=== PATIENT | female | born 1980 ===

== ENCOUNTER 2017-05-25 23:52 | Emergency (ER) | payer SELFPAY ==
[2017-05-26 00:25] VITALS: BP 114/72; PULSE 85; RESP 16; TEMP 97.8; O2SAT 96
[2017-05-26 01:22] LABS: RBC URINE 1 /hpf (0-3); URINE BACTERIA RARE (<OCC); URINE BILIRUBIN NEGATIVE (NEGATIVE); URINE BLOOD 1+ (NEGATIVE); URINE COLOR Amber (YELLOW); URINE GLUCOSE (UA) NORMAL (Normal); URINE KETONE NEGATIVE (NEGATIVE); URINE LEUKOCYTE ESTERASE TRACE Leu/uL (Negative); URINE PROTEIN NEGATIVE (NEGATIVE); WBC URINE 3 /hpf (0-5)
--- NOTE | 2017-05-26 01:32 | C.PDOC ---
Time Seen by Provider: 05/26/17 00:23 Chief Complaint (Nursing): Female Genitourinary Past Medical History Vital Signs: Last Vital Signs Temp 97.8 F 05/26/17 00:24 Pulse 85 05/26/17 00:24 Resp 16 05/26/17 00:24 BP 114/72 05/26/17 00:24 Pulse Ox 96 05/26/17 00:24 - Medical History PMH: Anxiety Family History: States: Unknown Family Hx - Social History Hx Tobacco Use: No Hx Alcohol Use: No Hx Substance Use: No - Immunization History Hx Tetanus Toxoid Vaccination: Yes Hx Influenza Vaccination: No Hx Pneumococcal Vaccination: No ED Course And Treatment O2 Sat by Pulse Oximetry: 96 Disposition Counseled Patient/Family Regarding: Diagnosis, Need For Followup, Rx Given - Disposition Referrals: Juancho Aburto MD [Staff Provider] - Disposition: HOME/ ROUTINE Disposition Time: 01:29 Condition: STABLE Additional Instructions: Please follow up with PMD Increase Fluids Take meds as directed Return to ER if worse Prescriptions: Ibuprofen [Motrin] 600 mg PO Q6H #20 tab Nitrofurantoin Macrocrystals [Macrobid] 1 cap PO BID #14 cap Instructions: Urinary Tract Infection in Women (ED) Print Language: ALGERIAN - Clinical Impression Clinical Impression: Urinary tract infection
== END 2017-05-26 01:35 | disposition home or self-care (01) ==
LOC: C.ER 23:52
DX: N39.0 Urinary tract infection, site not specified (principal)

== ENCOUNTER 2017-06-01 16:24 | Emergency (ER) | payer OTHER ==
[2017-06-01 16:48] VITALS: RESP 18; TEMP 98.2
[2017-06-01 17:15] LABS: SQUAMOUS EPITHIAL 5 /hpf (0-5); URINE BACTERIA RARE (<OCC); URINE BILIRUBIN NEGATIVE (NEGATIVE); URINE CLARITY Clear (Clear); URINE COLOR Yellow (YELLOW); URINE GLUCOSE (UA) NORMAL (Normal); URINE NITRATE NEGATIVE (NEGATIVE); URINE PROTEIN NEGATIVE (NEGATIVE); URINE UROBILINOGEN NORMAL mg/dL (0.2-1.0)
--- NOTE | 2017-06-01 17:16 | C.PDOC ---
History Of Present Illness 37 y/o female presents to the ED with complaints of dysuria and left flank heat for the past few days. Pain is 5/10 each time urinates she urinates. Pt seen here last week for same, UA (+) leukocytes, culture negative, given nitrofurantoin. Pt reports no relief. Denies fever, chills, hematuria, vaginal bleeding or discharge, nausea, vomiting or any other complaints. Pt not sexually acitve. Time Seen by Provider: 06/01/17 16:50 Chief Complaint (Nursing): Female Genitourinary History Per: Patient History/Exam Limitations: no limitations Onset/Duration Of Symptoms: Days Current Symptoms Are (Timing): Still Present Severity: Moderate Pain Scale Rating Of: 5 Quality Of Discomfort: "Pain" Associated Symptoms: Urinary Symptoms (dysuria). denies: Fever, Chills, Nausea , Vomiting Recent travel outside of the [place]: No Abnormal Vaginal Bleeding: No Past Medical History Reviewed: Historical Data, Nursing Documentation, Vital Signs Vital Signs: Last Vital Signs Temp 98.2 F 06/01/17 16:48 Pulse 88 06/01/17 16:48 Resp 18 06/01/17 16:48 BP 114/73 06/01/17 16:48 Pulse Ox 99 06/01/17 17:17 - Medical History PMH: Anxiety Family History: States: Unknown Family Hx - Social History Hx Tobacco Use: No Hx Alcohol Use: No Hx Substance Use: No - Immunization History Hx Tetanus Toxoid Vaccination: Yes Hx Influenza Vaccination: No Hx Pneumococcal Vaccination: No Review Of Systems Except As Marked, All Systems Reviewed And Found Negative. Constitutional: Negative for: Fever, Chills Gastrointestinal: Negative for: Nausea, Vomiting Genitourinary: Positive for: Dysuria, Other (left flank "heat"). Negative for: Hematuria, Vaginal Discharge, Vaginal Bleeding Physical Exam - Physical Exam Appears: Non-toxic, No Acute Distress Skin: Warm, Dry, No Rash Head: Atraumatic, Normacephalic Chest: Symmetrical Cardiovascular: Rhythm Regular, No Murmur Respiratory: Normal Breath Sounds, No Rales, No Rhonchi, No Wheezing Gastrointestinal/Abdominal: Soft, Tenderness (diffuse discomfort to LLQ), No Guarding, No Rebound Back: No CVA Tenderness Neurological/Psych: Oriented x3, Normal Speech ED Course And Treatment O2 Sat by Pulse Oximetry: 99 (room air) Pulse Ox Interpretation: Normal Progress Note: urine culture negative. UA (+) for leukocytes. Discharged home with Pyridium, cipro. Disposition - Disposition Referrals: [facility] [Outside] Juancho Aburto MD [Staff Provider] - Disposition: HOME/ ROUTINE Disposition Time: 17:13 Condition: STABLE Additional Instructions: Siga en la clinica para wes un gynecologo. Terral la medicina juarez se indica. Prescriptions: Ciprofloxacin HCl [Cipro] 1 tab PO BID #14 tab Ibuprofen [Motrin] 600 mg PO TID #15 tab Phenazopyridine [Pyridium] 200 mg PO TID #12 tab Instructions: Dysuria (ED) Forms: Gen Discharge Inst Omani - Clinical Impression Clinical Impression: Dysuria - Scribe Statement The provider has reviewed the documentation as recorded by the Deisy Stack Provider Attestation: All medical record entries made by the Betsyibwicho were at my direction and personally dictated by me. I have reviewed the chart and agree that the record accurately reflects my personal performance of the history, physical exam, medical decision making, and the department course for this patient. I have also personally directed, reviewed, and agree with the discharge instructions and disposition.
[2017-06-01 17:17] LABS: URINE BLOOD 1+ (NEGATIVE); URINE LEUKOCYTE ESTERASE 1+ Leu/uL (Negative)
[2017-06-01 17:39] VITALS: BP 120/70; PULSE 75; O2SAT 98
== END 2017-06-01 17:39 | disposition home or self-care (01) ==
LOC: C.ER 16:24
DX: R30.0 Dysuria (principal)

== ENCOUNTER 2018-07-08 17:06 | Emergency (ER) | payer OTHER ==
[2018-07-08 17:35] VITALS: BMI 23.4
[2018-07-08 17:39] VITALS: RESP 20
--- NOTE | 2018-07-08 19:34 | C.PDOC ---
History Of Present Illness The patient presents to the ED for evaluation of depression which has been worsening over the past 4-5 days. Patient is crying in the ED. She denies suicidal/homicidal ideation and has no physical complaints at this time. Time Seen by Provider: 07/08/18 19:33 Chief Complaint (Nursing): Psychiatric Evaluation History Per: Patient History/Exam Limitations: language barrier (Uruguayan ) Onset/Duration Of Symptoms: Days (4-5) Current Symptoms Are (Timing): Worse Suicide/Self Injury Attempted (Context): None Modifying Factor(s): None Severity: None Pain Scale Rating Of: 0 Associated Symptoms: Depression. denies: Suicidal Thoughts, Suicidal Plan Involuntary Hold By: None Recent travel outside of the [place]: No Additional History Per: Patient Past Medical History Reviewed: Historical Data, Nursing Documentation, Vital Signs Vital Signs: Last Vital Signs Temp 98.1 F 07/08/18 17:35 Pulse 78 07/08/18 17:35 Resp 20 07/08/18 17:35 BP 103/71 07/08/18 17:35 Pulse Ox 99 07/08/18 19:58 - Medical History PMH: Anxiety, Depression Surgical History: No Surg Hx - [facility] Procedures NEBULIZER THERAPY (09/26/13) Family History: States: Unknown Family Hx - Social History Hx Tobacco Use: No Hx Alcohol Use: No Hx Substance Use: No - Immunization History Hx Tetanus Toxoid Vaccination: Yes Hx Influenza Vaccination: No Hx Pneumococcal Vaccination: No Review Of Systems Constitutional: Negative for: Fever, Chills Cardiovascular: Negative for: Chest Pain, Palpitations Respiratory: Negative for: Cough, Shortness of Breath Gastrointestinal: Negative for: Nausea, Vomiting, Abdominal Pain Skin: Negative for: Rash, Lesions, Jaundice, Bruising Neurological: Negative for: Weakness, Numbness Psych: Positive for: Depression. Negative for: Suicidal ideation Physical Exam - Physical Exam Appears: Non-toxic, No Acute Distress, Other (tearful) Skin: Warm, Dry Head: Normacephalic Eye(s): bilateral: Normal Inspection Oral Mucosa: Moist Chest: Symmetrical, No Deformity Cardiovascular: Rhythm Regular, No Murmur Respiratory: No Rales, No Rhonchi, No Wheezing Extremity: Normal ROM Neurological/Psych: Oriented x3 ED Course And Treatment - Laboratory Results Result Diagrams: 07/08/18 20:19 08/09/18 20:19 O2 Sat by Pulse Oximetry: 99 (on RA) Pulse Ox Interpretation: Normal Progress Note: Bloodwork and urinalysis ordered. Pt was cleared for discharge by dr Zhu Reevaluation Time: 22:09 Reassessment Condition: Improved Disposition Counseled Patient/Family Regarding: Studies Performed, Diagnosis, Need For Followup - Disposition Referrals: [facility] [Outside] Disposition: HOME/ ROUTINE Disposition Time: 19:34 Condition: FAIR Additional Instructions: Please return if symptoms recur Instructions: Depression, Adult (DC) Forms: [employer] (Mongolian) Print Language: OCCITAN - Clinical Impression Clinical Impression: Depression - Scribe Statement The provider has reviewed the documentation as recorded by the Scribe (Evie Patino) Provider Attestation: All medical record entries made by the Scribe were at my direction and personally dictated by me. I have reviewed the chart and agree that the record accurately reflects my personal performance of the history, physical exam, medical decision making, and the department course for this patient. I have also personally directed, reviewed, and agree with the discharge instructions and disposition.
[2018-07-08 20:28] LABS: BASO % 0.6 % (0.0-2.0); EOS % 0.3 % (0.0-4.0); HEMOGLOBIN 13.3 g/dL (11.0-16.0); LYMPH # 1.8 K/uL (1.0-4.3); LYMPH % 23.4 % (20.0-40.0); MEAN CELL VOLUME 93.2 fL (81.0-99.0); MEAN CORPUSCULAR HEMOGLOBIN 33.1 pg (27.0-31.0); MEAN CORPUSCULAR HGB CONC 35.5 g/dL (33.0-37.0); MONO # 0.5 K/uL (0.0-0.8); MONO % 6.3 % (0.0-10.0); NEUT # 5.4 K/uL (1.8-7.0); NEUT % 69.4 % (50.0-75.0); RBC 4.02 Mil/uL (3.80-5.20); RED CELL DISTRIBUTION WIDTH 12.7 % (11.5-14.5); WHITE BLOOD COUNT 7.8 K/uL (4.8-10.8)
[2018-07-08 20:37] LABS: HCG,QUALITATIVE URINE NEGATIVE (NEGATIVE)
[2018-07-08 20:40] LABS: SQUAMOUS EPITHIAL 1 /hpf (0-5); URINE BILIRUBIN NEGATIVE (NEGATIVE); URINE BLOOD NEGATIVE (NEGATIVE); URINE CLARITY Hazy (Clear); URINE COLOR Amber (YELLOW); URINE GLUCOSE (UA) NORMAL (Normal); URINE LEUKOCYTE ESTERASE 1+ Leu/uL (Negative); URINE PROTEIN NEGATIVE (NEGATIVE); URINE UROBILINOGEN NORMAL mg/dL (0.2-1.0)
[2018-07-08 20:41] LABS: ALB/GLOB RATIO 1.6 (1.0-2.1); ALBUMIN 4.7 g/dL (3.5-5.0); ALT/SGPT 28 U/L (9-52); AST/SGOT 25 U/L (14-36); BLOOD UREA NITROGEN 10 mg/dL (7-17); CALCIUM 9.3 mg/dl (8.6-10.4); GFR AFRICAN-AMERICAN > 60; GFR NON-AFRICAN AMERICAN > 60
[2018-07-08 20:51] LABS: BARBITURATES, UR NEGATIVE (NEGATIVE); BENZODIAZEPINES, UR NEGATIVE (NEGATIVE); OPIATES, UR NEGATIVE (NEGATIVE); PHENCYCLIDINE, UR NEGATIVE (NEGATIVE)
[2018-07-08 23:01] VITALS: BP 110/70; PULSE 80; TEMP 98.4; O2SAT 98
== END 2018-07-08 22:58 | disposition home or self-care (01) ==
LOC: C.ER 17:06
DX: F32.9 Major depressive disorder, single episode, unspecified (principal)

== ENCOUNTER 2019-04-17 12:50 | Emergency (ER) | payer SELFPAY ==
[2019-04-17 12:51] VITALS: BMI 23.4
--- NOTE | 2019-04-17 13:32 | C.PDOC ---
History Of Present Illness Patient is a 39 year old female who presents to the ED for evaluation of urinary frequency, urgency and burning that has been present for the past week. Patient states that she has been taking OTC Pyridium, which has been helping. She denies any nausea, vomiting, fever, chills, flank pain, or vaginal discharge. LMP was a few weeks ago. No other complaints at this time. Time Seen by Provider: 04/17/19 13:07 Chief Complaint (Nursing): Female Genitourinary History Per: Patient History/Exam Limitations: no limitations Onset/Duration Of Symptoms: Days (one week) Current Symptoms Are (Timing): Still Present Quality Of Discomfort: Burning Associated Symptoms: Urinary Symptoms Recent travel outside of the [place]: No Additional History Per: Patient Past Medical History Reviewed: Historical Data, Nursing Documentation, Vital Signs Vital Signs: Last Vital Signs Temp 98.8 F 04/17/19 12:56 Pulse 89 04/17/19 12:56 Resp 20 04/17/19 12:56 BP 115/76 04/17/19 12:56 Pulse Ox 98 04/17/19 12:56 Primary Care Provider: Juancho Aburot - Medical History PMH: Anxiety, Depression Surgical History: No Surg Hx - [facility] Procedures NEBULIZER THERAPY (09/26/13) Family History: States: Unknown Family Hx - Social History Hx Tobacco Use: No Hx Alcohol Use: No Hx Substance Use: No - Immunization History Hx Tetanus Toxoid Vaccination: Yes Hx Influenza Vaccination: No Hx Pneumococcal Vaccination: No Review Of Systems Except As Marked, All Systems Reviewed And Found Negative. Constitutional: Negative for: Fever, Chills Gastrointestinal: Negative for: Nausea, Vomiting Genitourinary: Positive for: Dysuria, Frequency. Negative for: Vaginal Discharge Musculoskeletal: Negative for: Back Pain (flank) Physical Exam - Physical Exam Appears: Well, Non-toxic, No Acute Distress Skin: Warm, Dry Head: Atraumatic, Normacephalic Eye(s): bilateral: Normal Inspection Oral Mucosa: Moist Neck: Normal ROM Chest: Symmetrical, No Deformity Cardiovascular: Rhythm Regular, No Murmur Respiratory: Normal Breath Sounds, No Rales, No Rhonchi, No Wheezing Gastrointestinal/Abdominal: Soft, No Tenderness, No Distention, No Guarding, No Rebound Back: No CVA Tenderness, No Decreased ROM Extremity: Bilateral: Atraumatic Neurological/Psych: Oriented x3, Normal Speech, Normal Cognition ED Course And Treatment O2 Sat by Pulse Oximetry: 98 (on RA ) Pulse Ox Interpretation: Normal Medical Decision Making Medical Decision Making: Plan: POC Urine UA 1400 04/17/19 UA reviewed. 39yo healthy female, with complaint of dysuria, frequency and urgency x 1 week. Afebrile and no nausea, vomiting, abdominal pain, fevers or flank pain. Will treat for UTI with PO bactrim. Will follow-up with PMD. Advised to return if develops fevers, worsening pain, hematuria, vomiting, fevers, or back pain. Disposition Counseled Patient/Family Regarding: Studies Performed, Diagnosis, Need For Followup, Rx Given - Disposition Referrals: Juancho Aburto MD [Staff Provider] - Disposition: HOME/ ROUTINE Disposition Time: 14:02 Condition: STABLE Additional Instructions: Drink lots of water. Take antibiotic as prescribed. Follow-up with your PMD. Return if symptoms worsen or persist. Prescriptions: Sulfamethoxazole/Trimethoprim [Bactrim DS 800 mg-160 mg] 1 tab PO DAILY 7 Days #14 tab Forms: [employer] (Barbadian), Gen Discharge Inst Barbadian Print Language: SPA - Clinical Impression Clinical Impression: Urinary tract infection - PA / REAL ESTATE ASSOCIATE / Resident Statement MD/DO has reviewed & agrees with the documentation as recorded. - Scribe Statement The provider has reviewed the documentation as recorded by the Deisy Wong All medical record entries made by the Scribe were at my direction and person ally dictated by me. I have reviewed the chart and agree that the record accurately reflects my personal performance of the history, physical exam, medical decision making, and the department course for this patient. I have also personally directed, reviewed, and agree with the discharge instructions and disposition.
[2019-04-17 13:36] LABS: SQUAMOUS EPITHIAL 2 /hpf (0-5); URINE BACTERIA RARE (<OCC); URINE BILIRUBIN NEGATIVE (NEGATIVE); URINE BLOOD 1+ (NEGATIVE); URINE CLARITY Hazy (Clear); URINE COLOR Amber (YELLOW); URINE GLUCOSE (UA) NORMAL (Normal); URINE LEUKOCYTE ESTERASE TRACE Leu/uL (Negative); URINE PROTEIN NEGATIVE (NEGATIVE); URINE UROBILINOGEN NORMAL mg/dL (0.2-1.0)
[2019-04-17 14:33] VITALS: BP 106/67; PULSE 86; RESP 18; TEMP 99.2
[2019-04-17 18:54] VITALS: O2SAT 98
== END 2019-04-17 14:32 | disposition home or self-care (01) ==
LOC: C.ER 12:50
DX: N39.0 Urinary tract infection, site not specified (principal)